=== PATIENT | female | born 1995 | race Caucasian/White ===

== ENCOUNTER 2024-10-27 09:51 | Emergency (ER) | payer MEDICAID, OTHER ==
[~2024-10-27] VITALS: Ht 160 cm; Wt 81.8 kg
[~2024-10-27 09:51] MED LIST: NOCURR
[2024-10-27 09:54] VITALS: TEMP 98.2
[2024-10-27 10:15] LABS: APPEARANCE,URINE CLEAR (CLEAR); BILIRUBIN,URINE NEGATIVE (NEGATIVE); COLOR,URINE YELLOW (YELLOW); GLUCOSE, URINE (UA) NEGATIVE (NEGATIVE); KETONES,URINE NEGATIVE (NEGATIVE); LEUKOCYTE ESTERASE ,URINE NEGATIVE (NEGATIVE); NITRATE,URINE NEGATIVE (NEGATIVE); OCCULT BLOOD,URINE MODERATE (NEGATIVE); PROTEIN,URINE TRACE mg/dL (NEGATIVE); SPECIFIC GRAVITIY, URINE 1.025 (1.003-1.030); UROBILINOGEN,URINE <=1.0 mg/dL (<=1.0)
[2024-10-27 10:20] LABS: HCG,QUAL URINE NEGATIVE (NEGATIVE)
[2024-10-27 10:31] LABS: WBC,URINE None Seen /HPF (0-5)
[2024-10-27 10:32] LABS: BACTERIA,URINE None Seen /HPF (None Seen); SQUAMOUS EPITHELIAL CELL,UR Few /LPF (None Seen)
[2024-10-27 11:15] VITALS: BP 135/97; PULSE 90; RESP 18; O2SAT 97
== END 2024-10-27 11:29 | disposition home or self-care (01) ==
LOC: EMS 09:55
DX: R10.12 Left upper quadrant pain (principal)
CPT/HCPCS: 81001; 84703; 99283